=== PATIENT | female | born 1960 | race Caucasian/White ===

== ENCOUNTER → 2016-11-02 | Outpatient (CLI) | payer BC ==
--- NOTE | 2016-11-03 08:51 | US ---
EXAMINATION: Targeted left breast ultrasound HISTORY: 4-5 o'clock mass COMPARISON: Mammograms dated 09/05/2016 and 08/25/2015 TECHNIQUE: Grayscale images obtained within the region of concern. FINDINGS: There is no abnormal mass or fluid collection noted. No skin thickening. Normal-appearing adipose and glandular tissue is noted. IMPRESSION: No sonographic abnormality identified within the region of concern. Please follow-up pal pable abnormalities clinically.
== END | disposition home or self-care (01) ==
LOC: MW.US 10:00
PROVIDERS: ATTEND Obstetrics & Gynecology
DX: N64.4 Mastodynia (principal)
CPT/HCPCS: 76642-LT; 76642-LT-26

== ENCOUNTER 2019-09-10 09:52 | Day surgery (SDC) | payer BC ==
[~2019-09-10 09:52] MED LIST: Lactated Ringers 1,000 ML IV SCH; Sodium Chloride 0.9% 10 ML SDV IV PRN; Sodium Chloride 0.9% 10 ML Syringe FLUSH PRN; Sodium Chloride 0.9% 2.5 ML Syringe FLUSH PRN
[2019-09-10] MEDS ORDERED: Propofol 200 MG/20 ML SDV ONE (10:07)
[2019-09-10] MEDS ORDERED: Lidocaine 2% 5 ML SDV ONE (10:07)
[2019-09-10] MEDS ORDERED: fentaNYL 100 MCG/2 ML SDV ONE (10:07)
--- NOTE | 2019-09-10 10:59 | PCM.PREANE ---
Preanesthetic Assessment - Anesthesia/Transfusion/Family Hx Anesthesia History: Prior Anesthesia Reaction Family History of Anesthesia Reaction: No Transfusion History: No Prior Transfusion(s) - Review of Systems General: No Symptoms Pulmonary: No Symptoms Cardiovascular: No Symptoms Gastrointestinal: No Symptoms Neurological: No Symptoms Other: Reports: None - Physical Assessment NPO Status Date: 09/09/19 Vital Signs: Last Vital Signs Temp 97.7 F 09/10/19 10:28 Pulse 67 09/10/19 10:28 Resp 16 09/10/19 10:28 BP 123/71 09/10/19 10:28 Pulse Ox 98 09/10/19 10:28 Height: 5 ft 8 in Weight: 69.4 kg ASA Class: 2 Mental Status: Alert & Oriented x3 Airway Class: Mallampati = 2 Dentition: Reports: Normal Dentition ROM/Head Extension: Full Lungs: Clear to Auscultation, Normal Respiratory Effort Cardiovascular: Regular Rate, Regular Rhythm - Allergies Allergies/Adverse Reactions: Allergies Allergy/AdvReac Type Severity Reaction Status Date / Time cephalexin [From Keflex] Allergy Rash Verified 09/10/19 10:23 oseltamivir [From Tamiflu] Allergy Rash Verified 09/10/19 10:23 Penicillins Allergy Rash Verified 09/10/19 10:23 - Blood Blood Available: No - Acknowledgements Anesthesia Type Planned: General Anesthesia Pt an Appropriate Candidate for the Planned Anesthesia: Yes Alternatives and Risks of Anesthesia Discussed w Pt/Guardian: Yes Pt/Guardian Understands and Agrees with Anesthesia Plan: Yes Additional Comments: PMH: asthma-inactive, DM@ with diet controll, peripheral neuropathy in feet, rare migraines, gerd PLAN: tiva PreAnesthesia Questionnaire HEENT History: Reports: Allergic Rhinitis, Glaucoma Cardiovascular History: Reports: Other (See Below) Other Cardiovascular History: has been told she has a murmur- it is not always heard Other Respiratory History: recent bronchitis- finished antibiotics on 09/08/19 Gastrointestinal History: Reports: Colon Polyp, Other (See Below) Other Gastrointestinal History: occasional heartburn- takes Tums POLITICAL ADVISOR History: Reports: Psychiatric History: Reports: Anxiety, Depression Endocrine/Metabolic History: Reports: Other (See Below) Other Endocrine/Metabolic History: "Borderline diabetic" - controlled by diet and exercise - Past Surgical History Head Surgeries/Procedures: Reports: None HEENT Surgical History: Reports: Naso-Sinus Surgery, Tonsillectomy, Other (See Below) Other HEENT Surgeries/Procedures: Excision of Thyroglossal Duct Cyst GI Surgical History: Reports: Colonoscopy Female Surgical History: Reports: Breast Biopsy, Section, Tubal Ligation - SUBSTANCE USE Smoking Status *Q: Never Smoker Recreational Drug Use History: No - HOME MEDS Home Medications: Home Meds Fluticasone Propionate [Flonase Allergy Relief] 1 spray NASBOTH DAILY 08/23/19 [ History] Multivitamin [Multivitamins] 1 tab PO DAILY 08/23/19 [History] Sertraline HCl 75 mg PO DAILY 08/23/19 [History] - CURRENT (IN HOUSE) MEDS Current Meds: Current Medications Lactated Ringer's (Ringers, Lactated) 1,000 mls @ 125 mls/hr IV ASDIRECTED ROMMEL Last Admin: 09/10/19 10:24 Dose: 125 mls/hr Sodium Chloride (Saline Flush) 10 ml FLUSH ASDIRECTED PRN PRN Reason: Keep Vein Open Sodium Chloride (Saline Flush) 2.5 ml FLUSH ASDIRECTED PRN PRN Reason: Keep Vein Open Sodium Chloride (Saline Flush) 10 ml FLUSH ASDIRECTED PRN PRN Reason: Keep Vein Open Sodium Chloride (Saline Flush) 2.5 ml FLUSH ASDIRECTED PRN PRN Reason: Keep Vein Open Sodium Chloride (Normal Saline) 10 ml IV ASDIRECTED PRN PRN Reason: IV Use Discontinued Medications Fentanyl (Sublimaze) Confirm Administered Dose 100 mcg .ROUTE .STK-MED ONE Stop: 09/10/19 10:08 Lidocaine (Xylocaine-Mpf 2%) Confirm Administered Dose 5 ml .ROUTE .STK-MED ONE Stop: 09/10/19 10:08 Propofol (Diprivan 20 Ml) Confirm Administered Dose 400 mg .ROUTE .STK-MED ONE Stop: 09/10/19 10:08
--- NOTE | 2019-09-10 14:00 | PCM.OPNOTE ---
- General Post-Op/Procedure Note Date of Surgery/Procedure: 09/10/19 Operative Procedure(s): Diagnostic colonoscopy with polypectomy Findings: Transverse colon polyp Pre Op Diagnosis: History of colon polyps Post-Op Diagnosis: Transverse colon polyp Anesthesia Technique: MAC Primary Surgeon: Nayla Goldsmith Condition: Good
[2019-09-10] MEDS ORDERED: Ketamine 500 mg/10 ML MDV ONE (14:09)
--- NOTE | 2019-09-10 15:07 | PCM48HPAN ---
Post Anesthesia Note - EVALUATION WITHIN 48HRS OF ANESTHETIC Vital Signs in Normal Range: Yes Patient Participated in Evaluation: Yes Respiratory Function Stable: Yes Airway Patent: Yes Cardiovascular Function Stable: Yes Hydration Status Stable: Yes Pain Control Satisfactory: Yes Nausea and Vomiting Control Satisfactory: Yes Mental Status Recovered: Yes Vital Signs: Last Vital Signs Temp 98.2 F 09/10/19 14:15 Pulse 65 09/10/19 14:15 Resp 16 09/10/19 14:15 BP 127/56 L 09/10/19 14:15 Pulse Ox 99 09/10/19 14:15
--- NOTE | 2019-09-10 15:07 | PCM.POSTAN ---
POST ANESTHESIA ASSESSMENT - MENTAL STATUS Mental Status: Alert, Oriented - VITAL SIGNS Vital Signs: Last Vital Signs Temp 98.2 F 09/10/19 14:15 Pulse 65 09/10/19 14:15 Resp 16 09/10/19 14:15 BP 127/56 L 09/10/19 14:15 Pulse Ox 99 09/10/19 14:15 - RESPIRATORY Respiratory Status: Respiratory Rate WNL, Airway Patent, O2 Saturation Stable - CARDIOVASCULAR CV Status: Pulse Rate WNL, Blood Pressure Stable - GASTROINTESTINAL GI Status: No Symptoms - POST OP HYDRATION Hydration Status: Adequate & Stable
--- NOTE | 2019-09-11 21:49 | OR ---
SURGEON: NAYLA GOLDSMITH MD DATE OF PROCEDURE: 09/10/2019 PREOPERATIVE DIAGNOSIS: History of colon polyps. POSTOPERATIVE DIAGNOSIS: Transverse colon polyp. PROCEDURE PERFORMED: Diagnostic colonoscopy with polypectomy. PRIMARY SURGEON: Nayla Goldsmith MD. ANESTHESIA: MAC. INSTRUMENT USED: Olympus colonoscope. EXTENT OF THE EXAM: To the cecum. PREPARATION: Good. LIMITATIONS: None. INDICATIONS FOR EXAMINATION: The patient is a 59-year-old female who presents for a 5-year followup colonoscopy. She was found to have colon polyps during her last scope. I explained the procedure, expected perioperative course, and risks to the patient including bleeding, infection, or damage to surrounding structures including perforation. She verbalized understanding and wishes to proceed. PROCEDURE IN DETAIL: The patient was brought into the endoscopy suite and placed in the left lateral decubitus position. A time-out was completed verifying the patient's name, age, date of , allergies, and procedure to be performed. Monitored anesthesia care was induced and continuous oxygen was provided via nasal cannula throughout the procedure. After adequate sedation was achieved, a digital rectal exam was performed. This exam was within normal limits. A well-lubricated colonoscope was inserted in the rectum and advanced under direct visualization to the level of the cecum. The cecum was identified by both visual and anatomic landmarks. A photograph was taken of the cecal cap as well as with the scope retroflexed within the cecum. The scope was then straightened out and fully withdrawn while examining the color, texture, anatomy, and integrity of the mucosa from the cecum to the anal canal. The patient was found to have a single sessile polyp in the transverse colon. This was removed in piecemeal fashion using cold biopsy forceps. The scope was then brought into the rectum and retroflexed to allow visualization of the anal canal opening. This appeared normal and a photograph was taken. Scope was then straightened out and fully withdrawn. The cecum to anus time was 6 minutes. The patient tolerated the procedure well and was transferred to the PACU in stable condition. ENDOSCOPIC DIAGNOSIS: Transverse colon polyp. RECOMMENDATIONS: Follow up in clinic in 2 weeks. CHRISTOPHER LARA /[id number]
== END 2019-09-10 14:40 | disposition home or self-care (01) ==
LOC: MW.SDS 09:52
PROVIDERS: ATTEND Surgery
DX: Z12.11 Encounter for screening for malignant neoplasm of colon (principal); K63.5 Polyp of colon; E78.5 Hyperlipidemia, unspecified; E11.42 Type 2 diabetes mellitus with diabetic polyneuropathy; F32.9 Major depressive disorder, single episode, unspecified; Z86.010 Personal history of colon polyps; Z98.890 Other specified postprocedural states; Z88.0 Allergy status to penicillin; Z88.1 Allergy status to other antibiotic agents; Z79.899 Other long term (current) drug therapy; Z87.891 Personal history of nicotine dependence
CPT/HCPCS: 45380; J2001; J2704; J3010; J7120; 88305

== ENCOUNTER 2021-09-09 15:26 | Emergency (ER) | payer BC | END 2021-09-09 16:32 | disposition home or self-care (01) | LOC: MW.ED 15:26 | DX: S09.90XA Unspecified injury of head, initial encounter (principal); Z88.0 Allergy status to penicillin; Z88.1 Allergy status to other antibiotic agents; Z88.8 Allergy status to other drugs, medicaments and biological substances; Z79.84 Long term (current) use of oral hypoglycemic drugs; Z79.899 Other long term (current) drug therapy; W01.198A Fall on same level from slipping, tripping and stumbling with subsequent striking against other object, initial encounter | CPT/HCPCS: 70450; 70450-26; 99283-25 ==

== ENCOUNTER 2024-10-29 08:03 | Day surgery (SDC) | payer BC, MEDICARE ==
[~2024-10-29 08:03] MED LIST changes: -Lactated Ringers 1,000 ML IV SCH; -Sodium Chloride 0.9% 10 ML SDV IV PRN; +Sodium Chloride 0.9% 20 ML SDV IV PRN
[2024-10-29] MEDS: Lactated Ringers 1,000 ML IV SCH (08:38)
[2024-10-29] MEDS ORDERED: propofoL 500 MG/50 ML 50 ML ONE (09:18)
[2024-10-29] MEDS ORDERED: Lidocaine 2% 5 ML SDV ONE (09:18)
== END 2024-10-29 11:25 | disposition home or self-care (01) ==
LOC: MW.SDS 08:03
PROVIDERS: ATTEND Surgery
DX: D50.9 Iron deficiency anemia, unspecified (principal); K21.00 Gastro-esophageal reflux disease with esophagitis, without bleeding; K31.7 Polyp of stomach and duodenum; K44.9 Diaphragmatic hernia without obstruction or gangrene; F41.9 Anxiety disorder, unspecified; E11.9 Type 2 diabetes mellitus without complications; Z79.899 Other long term (current) drug therapy; Z88.0 Allergy status to penicillin
CPT/HCPCS: 43239; 45378; 88305; J2003; J2704; J7120; 00813